=== PATIENT | female | born 1990 | race Caucasian/White ===

== ENCOUNTER → 2020-06-08 | Outpatient (CLI) | payer OTHER, SELFPAY ==
[2020-06-08 10:18] VITALS: BMI 34.0
[2020-06-14 16:23] LABS: HPV APTIMA, High Risk Negative (Negative)
== END | disposition home or self-care (01) ==
LOC: LABSPEC 16:49
PROVIDERS: PCP Family Medicine; Referring Provider Obstetrics & Gynecology; Visit Provider Obstetrics & Gynecology
DX: Z12.4 Encounter for screening for malignant neoplasm of cervix (principal)
CPT/HCPCS: 87624; 88175; G0145

== ENCOUNTER → 2020-06-14 13:51 | Outpatient (CLI) | payer OTHER, SELFPAY ==
[2020-06-08 10:18] VITALS: BMI 34.0
--- NOTE | 2020-06-14 13:59 | US_ITS ---
STUDY: ULTRASOUND OF THE FEMALE PELVIS - COMPLETE REASON FOR EXAM: Female, 30 years old. aub LMP: 05/31/2020. TECHNIQUE: Transabdominal and Transvaginal TECHNICAL QUALITY: Adequate. COMPARISON: None. FINDINGS: The uterus is retroverted and is in a midline position. The uterus measures 7.7 cm x 5.6 cm x 5.2 cm. Normal uterine cervix. The endometrium measures 6.5 mm in thickness, and is hyperechoic. There is no demonstrated endometrial mass. There is no demonstrated myometrial mass. I.U.D. - The patient does not have an I.U.D. The right ovary is visualized. The right ovary measures 3.5 cm x 3.1 cm x 2.4 cm. There is no right ovarian cyst or ovarian mass. There is no visualized right adnexal mass or complex lesion. There is normal arterial and normal venous vascularity. The left ovary is visualized. The left ovary measures 4.1 cm x 2.7 cm x 2.9 cm. There is no left ovarian cyst or ovarian mass. There is no visualized left adnexal mass or complex lesion. There is normal arterial and normal venous vascularity. There is no fluid in the cul-de-sac. The pre void volume of the bladder was 300 ml. US/Pelvic (Non ) IMPRESSION: Normal female pelvis. Electronically Signed: Masood Tristan MD at 15:00 EST , Service support ,
--- NOTE | 2020-06-14 13:59 | US_ITS ---
STUDY: ULTRASOUND OF THE FEMALE PELVIS - COMPLETE REASON FOR EXAM: Female, 30 years old. aub LMP: 05/31/2020. TECHNIQUE: Transabdominal and Transvaginal TECHNICAL QUALITY: Adequate. COMPARISON: None. FINDINGS: The uterus is retroverted and is in a midline position. The uterus measures 7.7 cm x 5.6 cm x 5.2 cm. Normal uterine cervix. The endometrium measures 6.5 mm in thickness, and is hyperechoic. There is no demonstrated endometrial mass. There is no demonstrated myometrial mass. I.U.D. - The patient does not have an I.U.D. The right ovary is visualized. The right ovary measures 3.5 cm x 3.1 cm x 2.4 cm. There is no right ovarian cyst or ovarian mass. There is no visualized right adnexal mass or complex lesion. There is normal arterial and normal venous vascularity. The left ovary is visualized. The left ovary measures 4.1 cm x 2.7 cm x 2.9 cm. There is no left ovarian cyst or ovarian mass. There is no visualized left adnexal mass or complex lesion. There is normal arterial and normal venous vascularity. There is no fluid in the cul-de-sac. The pre void volume of the bladder was 300 ml. US/Transvaginal Non- IMPRESSION: Normal female pelvis. Electronically Signed: Masood Tristan MD at 15:00 EST , Service support ,
== END ==
PROVIDERS: PCP Family Medicine; Referring Provider Obstetrics & Gynecology; Visit Provider Obstetrics & Gynecology
DX: N97.9 Female infertility, unspecified (principal); N93.9 Abnormal uterine and vaginal bleeding, unspecified
CPT/HCPCS: 76830; 76856

== ENCOUNTER → 2020-08-11 09:11 | Outpatient (CLI) | payer OTHER, SELFPAY ==
[2020-06-08 10:18] VITALS: BMI 34.0
[2020-08-11 10:13] LABS: hCG Titer Quant., Serum 20832 mIU/mL (1-3)
== END ==
PROVIDERS: PCP Family Medicine; Referring Provider Obstetrics & Gynecology; Visit Provider Obstetrics & Gynecology
DX: Z34.90 Encounter for supervision of normal pregnancy, unspecified, unspecified trimester (principal)
CPT/HCPCS: 36415; 84702

== ENCOUNTER → 2020-08-28 11:21 | Outpatient (CLI) | payer OTHER, SELFPAY ==
[2020-08-28 10:34] VITALS: BMI 34.2
--- NOTE | 2020-08-28 11:24 | US_ITS ---
STUDY: FIRST TRIMESTER OBSTETRICAL ULTRASOUND REASON FOR EXAM: Female, 30 years old viability LMP: 05/30/2020 TECHNIQUE: Transabdominal and Transvaginal TECHNICAL QUALITY: Adequate. PRIOR ULTRASOUND: None. FINDINGS: There is visualization of a single gestational sac in a normal intrauterine position. The mean sac diameter (MSD) measures 1.91 cm, indicating an estimated gestational age (EGA) of 6 weeks, 6 days. The gestational sac shape is within normal limits. There is a visualized yolk sac. The yolk sac measures 1.4 cm. The placenta is non-visualized. There is no demonstrated embryo ( pole). The estimated gestation age (EGA) by LMP is 12 weeks, 6 days. The estimated date of delivery (TIAN) by LMP is 03/06/2021. The estimated gestation age (EGA) by US is 6 weeks, 3 days. The estimated date of delivery (TIAN) by US is 04/20/2021. The uterus measures 13 cm x 9.8 cm x 5.9 cm. There is no demonstrated uterine fibroid. The cervix is closed. The right ovary measures 3.7 cm x 3 cm by 1.6 cm. There is no right ovarian cyst. There is no visualized right adnexal mass or complex lesion. The left ovary measures 3 cm x 2.5 cm x 1.3 cm. There is no left ovarian cyst. There is no visualized left adnexal mass or complex lesion. There is no fluid in the cul de sac. US/Transvaginal w/Preg US IMPRESSION: Intrauterine gestational sac with images patient wedge of 6 weeks and 3 days. No definite pole or cardiac activity is seen at this time. Follow-up is recommended. Electronically Signed: Masood Tristan MD at 12:52 EDT , Service support ,
== END ==
PROVIDERS: PCP Family Medicine; Referring Provider Obstetrics & Gynecology; Visit Provider Obstetrics & Gynecology
DX: O20.0 Threatened abortion (principal)
CPT/HCPCS: 76817

== ENCOUNTER → 2020-08-31 16:22 | Outpatient (CLI) | payer OTHER, SELFPAY ==
[2020-08-28 10:34] VITALS: BMI 34.2
--- NOTE | 2020-08-31 16:24 | US_ITS ---
STUDY: FIRST TRIMESTER OBSTETRICAL ULTRASOUND REASON FOR EXAM: Female, 30 years old Viability/bleeding LMP: May 30, 2020 TECHNIQUE: Transvaginal TECHNICAL QUALITY: Adequate. PRIOR ULTRASOUND: August 28, 2020 FINDINGS: There is visualization of a single gestational sac in a normal intrauterine position. The mean sac diameter (MSD) measures 2.3 cm, indicating an estimated gestational age (EGA) of 7 weeks, 1 days. The gestational sac shape is irregular. There is no demonstrated yolk sac. The placenta is non-visualized. There is visualization of an embryo with no cardiac activity, consistent with intrauterine demise. The crown-rump length (CRL) measures 0.5 cm, indicating an estimated gestational age (EGA) of 6 weeks, 2 days. The estimated gestation age (EGA) by LMP is 13 weeks, 2 days. The estimated date of delivery (TIAN) by LMP is March 06, 2021. The estimated gestation age (EGA) by US is 6 weeks, 5 days. The estimated date of delivery (TIAN) by US is April 01, 2021. The uterus measures 11.7 x 8.6 x 7.2 cm. There is no demonstrated uterine fibroid. The cervix is closed. The right ovary measures 3.3 x 2.6 x 2.1 cm. There is no right ovarian cyst. There is no visualized right adnexal mass or complex lesion. The left ovary measures 4.8 x 2.3 x 1.9 cm. There is no left ovarian cyst. There is no visualized left adnexal mass or complex lesion. There is no fluid in the cul de sac. US/Transvaginal w/Preg US IMPRESSION: demise in utero at 6 weeks 5 days. Electronically Signed: Ruben Ba MD at 18:24 EDT , Service support ,
[2020-08-31 18:37] LABS: hCG Titer Quant., Serum 3918 mIU/mL (1-3)
== END ==
PROVIDERS: PCP Family Medicine; Referring Provider Obstetrics & Gynecology; Visit Provider Obstetrics & Gynecology
DX: O36.80X0 Pregnancy with inconclusive fetal viability, not applicable or unspecified (principal); Z3A.00 Weeks of gestation of pregnancy not specified
CPT/HCPCS: 36415; 76817; 84702

== ENCOUNTER → 2020-09-04 08:56 | Outpatient (CLI) | payer OTHER, SELFPAY ==
[2020-09-04 08:34] VITALS: BMI 34.2
[2020-09-04 09:43] LABS: hCG Titer Quant., Serum 306 mIU/mL (1-3)
== END ==
PROVIDERS: PCP Family Medicine; Referring Provider Obstetrics & Gynecology; Visit Provider Obstetrics & Gynecology
DX: O03.9 Complete or unspecified spontaneous abortion without complication (principal)
CPT/HCPCS: 36415; 84702; 86850; 86900; 86901

== ENCOUNTER → 2020-12-18 14:22 | Outpatient (CLI) | payer OTHER, SELFPAY ==
[2020-12-18 15:09] LABS: hCG Titer Quant., Serum 581 mIU/mL (1-3)
== END ==
PROVIDERS: PCP Family Medicine; Referring Provider Obstetrics & Gynecology; Visit Provider Obstetrics & Gynecology
DX: N91.2 Amenorrhea, unspecified (principal)
CPT/HCPCS: 36415; 84702

== ENCOUNTER → 2020-12-20 09:38 | Outpatient (CLI) | payer OTHER, SELFPAY ==
[2020-12-20 10:39] LABS: hCG Titer Quant., Serum 1222 mIU/mL (1-3)
== END ==
PROVIDERS: PCP Family Medicine; Referring Provider Obstetrics & Gynecology; Visit Provider Obstetrics & Gynecology
DX: N91.2 Amenorrhea, unspecified (principal)
CPT/HCPCS: 36415; 84702

== ENCOUNTER → 2021-01-10 11:48 | Outpatient (CLI) | payer OTHER, SELFPAY ==
[2021-01-10 11:33] LABS: Amphetamine Urine VISTA NEGATIVE (<1000 ng/mL); Barbiturate Urine VISTA NEGATIVE (< 200 ng/mL); Benzodiazepine Urine VISTA NEGATIVE (< 200 ng/mL); Cocaine Urine VISTA NEGATIVE (< 300 ng/mL); Ecstacy Urine VISTA NEGATIVE (< 500 ng/mL); Methadone Urine VISTA NEGATIVE (< 300 ng/mL); PCP Urine VISTA NEGATIVE (< 25 ng/mL); THC Urine VISTA NEGATIVE (< 50 ng/mL); Vista UDS pH Range 6
[2021-01-12 03:07] LABS: Chlamydia By Nucleic Acid AMP Negative (Negative)
[2021-01-12 08:33] LABS: Gonococcus By Nucleic Acid AMP Negative (Negative)
== END ==
PROVIDERS: PCP Family Medicine; Visit Provider Obstetrics & Gynecology
DX: Z34.80 Encounter for supervision of other normal pregnancy, unspecified trimester (principal)
CPT/HCPCS: 80307; 87086; 87088; 87491; 87591

== ENCOUNTER → 2021-01-24 08:53 | Outpatient (CLI) | payer OTHER, SELFPAY ==
[2021-01-24 09:26] LABS: Absolute Lymphocyte Count 1.72 X10^3/uL (0.83-4.51); Absolute Neutrophil Count 5.6 X10^3/uL (2.0-7.7); Basophil# 0.04 X10^3/uL; Basophil% 0.5 % (0-1); Eosinophils% 2.4 % (0-5); Hematocrit 37.9 % (37-47); Hemoglobin 12.6 g/dL (12.0-15.0); Lymphocyte # 1.72 X10^3/ul (0.83-4.51); Lymphocyte % 20.9 % (19-41); Mean Corp Hgb Conc 33.2 g/dL (32-36); Mean Corpuscular Hgb 29.8 pg (27.0-32.0); Mean Corpuscular Volume 89.6 fL (81-99); Mean Platelet Vol. 8.9 fl (6.2-12.0); Monocyte# 0.61 X10^3/uL; Monocyte% 7.4 % (0-10); NRBC Flagged by Analyzer 0 % (0-5); Neutrophil # 5.64 X10^3/uL (2.7-7.7); Neutrophil % 68.4 % (47-70); Platelet Count 296 K/mm3 (150-450); RBC Distribution Width CV 12.9 % (11.6-14.6); RBC Distribution Width SD 42.1 fl (35.1-43.9); Red Blood Count 4.23 M/mm3 (4.2-5.4); White Blood Count 8.2 K/mm3 (4.4-11.0)
[2021-01-24 10:08] LABS: Glucose Challenge Gest 1H 50g 124 mg/dL (70-140); Thyroid Stim Hormone (TSH) 1.96 uIU/mL (0.358-3.74)
[2021-01-24 10:39] LABS: HIV - WCH Non-Reactive (Nonreactive); Hepatitis B Surface Antigen Non-Reactive (Nonreactive); Hepatitis C Antibody Non-Reactive (Nonreactive); Rubella IgG Reactive (Nonreactive); Syphilis Antibodies Non-reactive
== END ==
PROVIDERS: PCP Family Medicine; Referring Provider Obstetrics & Gynecology; Visit Provider Obstetrics & Gynecology
DX: O99.210 Obesity complicating pregnancy, unspecified trimester (principal); E03.9 Hypothyroidism, unspecified; Z3A.00 Weeks of gestation of pregnancy not specified
CPT/HCPCS: 36415; 82950; 84443; 85025; 86703; 86762; 86780; 86803; 86850; 86900; 86901; 87340

== ENCOUNTER 2021-05-30 08:15 | Outpatient (CLI) | payer OTHER, SELFPAY ==
[2021-05-30 08:37] LABS: Absolute Lymphocyte Count 1.66 X10^3/uL (0.83-4.51); Absolute Neutrophil Count 5.3 X10^3/uL (2.0-7.7); Basophil# 0.03 X10^3/uL; Basophil% 0.4 % (0-1); Eosinophils% 2.5 % (0-5); Hemoglobin 10.8 g/dL (12.0-15.0); Lymphocyte # 1.66 X10^3/ul (0.83-4.51); Lymphocyte % 20.9 % (19-41); Mean Corp Hgb Conc 33.8 g/dL (32-36); Mean Corpuscular Hgb 30.5 pg (27.0-32.0); Mean Corpuscular Volume 90.4 fL (81-99); Mean Platelet Vol. 9.1 fl (6.2-12.0); Monocyte# 0.69 X10^3/uL; Monocyte% 8.7 % (0-10); NRBC Flagged by Analyzer 0 % (0-5); Neutrophil # 5.34 X10^3/uL (2.7-7.7); Neutrophil % 67.1 % (47-70); Platelet Count 284 K/mm3 (150-450); RBC Distribution Width CV 12.1 % (11.6-14.6); RBC Distribution Width SD 40.2 fl (35.1-43.9); Red Blood Count 3.54 M/mm3 (4.2-5.4)
[2021-05-30 08:55] LABS: Glucose Challenge Gest 1H 50g 110 mg/dL (70-140); T4 Free Direct 0.74 ng/dL (0.76-1.46); Thyroid Stim Hormone (TSH) 1.77 uIU/mL (0.358-3.74)
== END 2021-05-30 23:59 | disposition short-term general hospital (02) ==
LOC: PAVLAB 08:15
PROVIDERS: PCP Family Medicine; Referring Provider Obstetrics & Gynecology; Visit Provider Obstetrics & Gynecology
DX: Z34.80 Encounter for supervision of other normal pregnancy, unspecified trimester (principal); E03.9 Hypothyroidism, unspecified; Z13.29 Encounter for screening for other suspected endocrine disorder
CPT/HCPCS: 36415; 82950; 84439; 84443; 85025

== ENCOUNTER 2021-07-30 10:25 | Outpatient (CLI) | payer OTHER, SELFPAY ==
[2021-07-30] VITALS (17 sets, daily range): BP systolic 132; BP diastolic 76; PULSE 74–113; TEMP 36.8; O2SAT 94–99; BMI 35.6
--- NOTE | 2021-08-03 04:27 | OB.TRI.PN ---
Progress Notes Date of Service: 08/03/21 Progress Note: Patient presents for triage evaluation secondary to heart rate decel in office unstable lie FHT: 140 Moderate variability reactive no decelerations category I tracing [place]: irreuglar Contractions Assessment and plan: heart rate variable decel unstable lie, no further decels seen on prolonged monitoring- Reactive NST, reassuring maternal and status patient discharged to home to follow-up as scheduled. See problem list details for additional plan information. Charges/Coding Procedures Urinary/Genital 52xxx-59xxx: 76134-06 non-stress test Interp
== END 2021-07-30 23:59 | disposition home or self-care (01) ==
LOC: WPOUT 10:34 → WP 10:35
PROVIDERS: PCP Family Medicine; Visit Provider Obstetrics & Gynecology
DX: O76 Abnormality in fetal heart rate and rhythm complicating labor and delivery (principal); O32.0XX0 Maternal care for unstable lie, not applicable or unspecified; Z3A.00 Weeks of gestation of pregnancy not specified
CPT/HCPCS: 59025; 59050; 87081; 99218; G0378

== ENCOUNTER 2021-08-30 04:20 | Inpatient (IN) | payer OTHER, SELFPAY ==
[2021-08-30] VITALS (42 sets, daily range): BP systolic 95–130; BP diastolic 47–81; PULSE 61–96; RESP 14–16; TEMP 36.1–37.3; O2SAT 95–100; BMI 35.7
[2021-08-30] MEDS: Lactated Ringers 1,000 ML 50 ML IV (05:25)
[2021-08-30 05:37] LABS: Absolute Lymphocyte Count 2.15 X10^3/uL (0.83-4.51); Absolute Neutrophil Count 4.2 X10^3/uL (2.0-7.7); Basophil# 0.03 X10^3/uL; Basophil% 0.4 % (0-1); Eosinophil# 0.13 X10^3/uL; Eosinophils% 1.8 % (0-5); Hematocrit 29.9 % (37-47); Hemoglobin 9.5 g/dL (12.0-15.0); Lymphocyte # 2.15 X10^3/ul (0.83-4.51); Lymphocyte % 30.2 % (19-41); Mean Corp Hgb Conc 31.8 g/dL (32-36); Mean Corpuscular Hgb 26.8 pg (27.0-32.0); Mean Corpuscular Volume 84.2 fL (81-99); Mean Platelet Vol. 9.6 fl (6.2-12.0); Monocyte# 0.65 X10^3/uL; Monocyte% 9.1 % (0-10); NRBC Flagged by Analyzer 0 % (0-5); Neutrophil # 4.15 X10^3/uL (2.7-7.7); Neutrophil % 58.2 % (47-70); Platelet Count 272 K/mm3 (150-450); RBC Distribution Width CV 13.8 % (11.6-14.6); RBC Distribution Width SD 42.7 fl (35.1-43.9); Red Blood Count 3.55 M/mm3 (4.2-5.4); White Blood Count 7.1 K/mm3 (4.4-11.0)
[2021-08-30] MEDS: Lactated Ringers 500 ML 999 ML IV (07:59)
[2021-08-30] MEDS: fentaNYL-bupivacaine (epidural) 100 ML BAG EPIDURAL (09:10)
--- NOTE | 2021-08-30 10:42 | HP.PCM.OB_ITS ---
HPI - General General Date of Admission: 08/30/21 HPI Narrative OSEI THAKKAR, is a 31 F who presents IAL 4 cm dilated with regular ctx painful no vb lof admits good FM, fetus vertex presentation. Maternal Data Information TIAN Calculator Estimated Delivery Date Method Current WG Current Estimate 08/24/21 Ultrasound #1 41w 0d Other Estimates 08/16/21 LMP (Certain) 42w 1d PFSH PFSH Medical History Hypothyroid PCOS (polycystic ovarian syndrome) Home Medications multivitamin no.47-iron fum 27 mg-folate no.1 1 mg-dha 300 mg capsule 1 cap PO DAILY 12/20/20 [History Last Taken Unknown] ferrous sulfate 325 mg (65 mg iron) tablet 325 mg PO DAILY 06/25/21 [History Last Taken Unknown] famotidine [Pepcid] 20 mg PO DAILY 08/30/21 [History Last Taken Unknown] naproxen 500 mg PO BID PRN PRN #30 tab 08/31/21 [Rx Last Taken Unknown] oxycodone-acetaminophen [Percocet] 1 tab PO Q6H PRN 7 Days #20 tab 08/31/21 [Rx Last Taken Unknown] Allergy/AdvReac Type Severity Reaction Status Date / Time azithromycin [From Zithromax] Allergy Mild other Verified 08/14/21 08:21 Family History Grandmother Breast cancer Mother Multiple sclerosis Social History adopted: No household members: family housing: house number of children: 2 current occupational status: employed current occupation: [employer] Smoking Status: Never smoker second hand exposure: No alcohol intake: current details: social substance use type: does not use caffeine: Yes what type of physical activity do you participate in: walking seatbelt use: always do you feel safe at home: Yes additional social history: Cameron- [employer] Insurance History 4 Elective abortions 1 Hx Para 2 Spontaneous abortions Hx # Term Pregnancies Ectopic pregnancies Hx # Pregnancies Multiple births # of living children 2 Past Pregnancies Del. Date Name GA/Weeks Outcome Route Bth Weight Infant Gen Labor Lgth Anesthesia Del Locatn Provider FOB Unknown 2013 Joseph 40 live - full term 7lbs 14oz Fem caryn 24 hours epidural Marilu Clifton Unknown 2014 Kae 41 live - full term 8lbs 13oz Fema le 7 hours epidural Marilu Clifton Delivery Date: no complications Stephanie Ewing Delivery Date: IoL- post dates Stephanie Ewing Visit Details Expected Delivery Route/Plan Labor Preference: labor support person: Cameron labor intervention preferences: [] pain management options preferred: epidural cut cord/dad catch: cord : yes PP control planned: discussed: considering IUD discussed possible routes of delivery and associated risks: [] special requests: [] Plans Covid status: immune by vaccine pfizer Flu vaccine: given Tdap vaccine: given Rhogam: NA LARC form signed: yes movement and labor precautions reviewed. Problem list reviewed and updated with the most current plan of care details and appropriate orders placed. Relevant counseling for the gestational age provided. Continue routine care and follow up unless otherwise noted in visit notes/problem list details OB Flowsheet Initial Weight: 195 lb Date -?-?-?-?-?-?-?-?--?-?-?-?- EGA Weight BP Urine Prot -?-?-?-?-?-?-?-?-?-?-?-?- Glucose FHR FuHt Pres Dilation -?-?-?-?-?-?-?-?-?-?-?-?- Effaced St Visit Note 01/10/21 -?-?-?-?-?-?-?-?-?-?-?-?- 7w 5d 195 lb 6 oz (+6 oz) 110/80 -?-?-?-?-?-?-?-?-?-?-?-?- 157 -?-?-?-?-?-?-?-?-?-?-?-?- GP - CRL 13mm co nsistent with LMP 01/24/21 -?-?-?-?-?-?-?-?-?-?-?-?- 9w 5d 195 lb 6 oz (+6 oz) 124/88 Negative -?-?-?-?-?-?-?-?-?-?-?-?- Negative 150 -?-?-?-?-?-?-?-?-?-?-?-?- SM- no vb crmapi ng. 02/05/21 -?-?-?-?-?-?-?-?-?-?-?-?- 11w 3d 193 lb 2 oz (-1 lb 14 oz) 132/88 Trace -?-?-?-?-?-?-?-?-?-?-?-?- Negative 160 -?-?-?-?-?-?-?-?-?-?-?-?- -work in for s mall amount brown vaginal discharge. Had recent intercourse. Brief sono confirmed active IUP. Cervix closed. No blood in vagina. Reassured. 02/23/21 -?-?-?-?-?-?-?-?-?-?-?-?- 14w 0d 194 lb (-16 oz) 120/82 Negative -?-?-?-?-?-?-?-?-?-?-?-?- Negative 150 -?-?-?-?-?-?-?-?-?-?-?-?- SM- no vb crampi ng 03/20/21 -?-?-?-?-?-?-?-?-?-?-?-?- 17w 4d 191 lb 6 oz (-3 lb 10 oz) 112/80 Negative -?-?-?-?-?-?-?-?-?-?-?-?- Negative 147 -?-?-?-?-?-?-?-?-?-?-?-?- JV- no lof, vagi nal bleeding, or cramping. no movement yet. 04/16/21 -?-?-?-?-?-?-?-?-?-?-?-?- 21w 3d 195 lb 8 oz (+8 oz) 106/76 Negative -?-?-?-?-?-?-?-?-?-?-?-?- Negative 145 -?-?-?-?-?-?-?-?-?-?-?-?- SM- no vb lof go od fm no reualr ctx. need to review anatomy scan 05/18/21 -?-?-?-?-?-?-?-?-?-?-?-?- 26w 0d 201 lb (+6 lb) 116/78 Negative -?-?-?-?-?-?-?-?-?-?-?-?- Negative 140 26 -?-?-?-?-?-?-?-?-?-?-?-?- SM- no vb lof go od fm nor egular ctx 05/30/21 -?-?-?-?-?-?-?-?-?-?--?-?- 27w 5d 200 lb (+5 lb) 116/72 Trace -?-?-?-?-?-?-?-?-?-?-?-?- Negative 152 28 -?-?-?-?-?-?-?-?-?-?-?-?- MH-No VB, LOF. N o CTX. 28 wk labs, Larc, tdap. 06/12/21 -?-?-?-?-?-?-?-?-?-?-?-?- 29w 4d 198 lb 4 oz (+3 lb 4 oz) 120/70 Negative -?-?-?--?-?-?-?-?-?-?-?-?- Negative 150 31 -?-?-?-?-?-?-?-?-?-?-?-?- JV- no complaint s today. nml glucola. got tdap last visit. no lof ,vaginal bleeding, or dec fm. 06/25/21 -?-?-?-?-?-?-?-?-?-?-?-?- 31w 3d 200 lb (+5 lb) 112/80 Negative -?-?-?-?-?-?-?-?-?-?-?-?- Negative 140 33 -?-?-?-?-?-?-?-?-?-?-?-?- SM- no vb lof go od fm no regular ctx 07/09/21 -?-?-?-?-?-?-?-?-?-?-?-?- 33w 3d 199 lb (+4 lb) 112/70 Negative -?-?-?-?-?-?-?-?-?-?-?-?- Negative 140 34 -?-?-?-?-?-?-?-?-?-?-?-?- SM- no vb lof go od fm no regular ctx 07/24/21 -?-?-?-?-?-?-?-?-?-?-?-?- 35w 4d 199 lb 8 oz (+4 lb 8 oz) 116/74 Negative -?-?-?-?-?-?-?-?-?-?-?-?- Negative 150 36 Breech -?-?-?-?-?-?-?-?-?-?-?-?- JV- no lof, vag bleeding, or dec. breech today. will rescan next week with GBS. 07/30/21 -?-?-?-?-?-?-?-?-?-?-?-?- 36w 3d 201 lb (+6 lb) 100/62 Negative -?-?-?-?-?-?-?-?-?-?-?-?- Negative 140 36 Cephalic -?-?-?-?-?-?-?-?-?-?-?-?- SM- no vb lof go od fm no regular ctx, infant moving transverse to head on exam today, nst done afterwards 08/08/21 -?-?-?-?-?-?-?-?-?-?-?-?- 37w 5d 200 lb 5 oz (+5 lb 5 oz) 130/80 Negative -?-?-?-?--?-?-?-?-?-?-?-?- Negative 150 37 Cephalic 0 -?-?-?-?-?-?-?-?-?-?-?-?- JV- ultrasound t o confirm still vertex. pt closed. labor precautions discussed 08/14/21 -?-?-?-?-?-?-?-?-?-?-?-?- 38w 4d 202 lb (+7 lb) 132/80 Negative -?-?-?-?-?-?-?-?-?-?-?-?- Negative 140 38 Cephalic 1 -?-?-?-?-?-?-?-?-?-?-?-?- 0 -4 JV- presen ting part not felt. rpt bedside scan confirmed high vertex. IOL not recommended at this time unless other issues arise. will re-discuss at next visit. 08/21/21 -?-?-?-?-?-?-?-?-?-?-?-?- 39w 4d 199 lb (+4 lb) 136/80 -?-?-?-?-?-?-?-?-?-?-?-?- 145 38 Cephalic 1 -?-?-?-?-?-?-?-?-?-?-?-?- 0 -4 SM- vertex on ultrasound engaged. no vb lof good fm no regular ctx 08/28/21 -?-?-?-?-?-?-?-?-?-?-?-?- 40w 4d 202 lb (+7 lb) 136/88 -?-?-?-?-?-?-?-?-?-?-?-?- 140 40 Cephalic 1 -?-?-?-?-?-?-?-?-?-?-?-?- SM- discussed no vb lof good fm no regular ctx 08/30/21 -?-?-?-?-?-?-?-?-?-?-?-?- 40w 6d 201 lb 15.095 oz (+6 lb 15.095 oz) 115/60 121/67 125/80 128/81 130/79 119/78 108/64 105/62 108/66 115/73 110/58 110/67 98/54 100/59 95/47 102/62 105/59 104/52 102/54 104/70 110/62 106/58 -?-?-?-?-?-?-?-?-?-?-?-?- -?-?-?-?-?-?-?-?-?-?-?-?- NST FHR Rate Baby A Baseline: 140 Variability:: Moderate Accelerations:: 15 x 15 Decelerations:: None NST Reactive:: Yes FHR Category:: Category I Uterine Activity:: q3-5 ROS Constitutional Constitutional: Reports systems reviewed and no addt'l complaints, except as documented ENT HEENT: Reports systems reviewed and no addt'l complaints, except as documented Cardiovascular Cardiovascular: Reports systems reviewed and no addt'l complaints, except as documented Respiratory/Chest Respiratory/Chest: Reports systems reviewed and no addt'l complaints, except as documented Gastrointestinal Gastrointestinal: Reports systems reviewed and no addt'l complaints, except as documented and nausea; Denies abdominal pain Genitourinary Genitourinary: Reports systems reviewed and no addt'l complaints, except as documented, contractions Details: present and frequency (regular ) and movement Details: present Musculoskeletal Musculoskeletal: Reports systems reviewed and no addt'l complaints, except as documented Integumentary Integumentary: Reports as per HPI Neurologic Neurologic: Reports systems reviewed and no addt'l complaints, except as documented Endocrine Endocrinology: Reports systems reviewed and no addt'l complaints, except as documented Vital Signs Vital Signs Vital Signs: 08/30/21 04:34 08/30/21 04:39 08/30/21 06:43 Temperature 98.2 F 98.1 F Temperature Source Temporal Temporal Pulse Rate 96 Blood Pressure 115/60 BP Systolic 115 BP Diastolic 60 Pulse Ox 08/30/21 06:45 08/30/21 07:16 08/30/21 07:17 Temperature 98.2 F Temperature Source Pulse Rate 71 69 78 Blood Pressure 121/67 H 125/80 H BP Systolic 121 125 BP Diastolic 67 80 Pulse Ox 98 98 08/30/21 07:20 08/30/21 08:48 08/30/21 08:53 Temperature Temperature Source Pulse Rate 68 68 Blood Pressure BP Systolic BP Diastolic Pulse Ox 98 99 98 08/30/21 08:54 08/30/21 08:57 08/30/21 08:58 Temperature 99.1 F Temperature Source Pulse Rate 74 71 Blood Pressure 128/81 H BP Systolic 128 BP Diastolic 81 Pulse Ox 98 08/30/21 08:59 08/30/21 09:03 08/30/21 09:04 Temperature Temperature Source Pulse Rate 74 73 Blood Pressure 130/79 H 119/78 BP Systolic 130 119 BP Diastolic 79 78 Pulse Ox 97 08/30/21 09:08 08/30/21 09:09 08/30/21 09:13 Temperature Temperature Source Pulse Rate 76 84 Blood Pressure 108/64 105/62 BP Systolic 108 105 BP Diastolic 64 62 Pulse Ox 99 99 08/30/21 09:18 08/30/21 09:19 08/30/21 09:23 Temperature Temperature Source Pulse Rate 91 83 83 Blood Pressure 108/66 BP Systolic 108 BP Diastolic 66 Pulse Ox 98 98 08/30/21 09:24 08/30/21 09:28 08/30/21 09:29 Temperature Temperature Source Pulse Rate 86 74 Blood Pressure 115/73 110/58 L BP Systolic 115 110 BP Diastolic 73 58 Pulse Ox 98 08/30/21 09:33 08/30/21 09:42 08/30/21 10:12 Temperature 98.2 F 97.5 F L Temperature Source Pulse Rate 80 63 Blood Pressure 110/67 98/54 L BP Systolic 110 98 BP Diastolic 67 54 Pulse Ox 98 Weight Weight: 201 lb 15.095 oz Body Mass Index (BMI) 35.7 Physical Exam Const alert, oriented x3 and healthy appearing Constitutional Narrative: uncomfortable with contractions HEENT normocephalic and moist oral mucous membranes Head and Scalp: atraumatic Neck full ROM, no lymphadenopathy, supple and thyroid normal General: trachea midline Thyroid: thyroid normal Lymph Lymphatic: no lymphadenopathy noted Chest inspection of chest normal Resp normal respiratory effort Cardio regular rate GI normal to inspection, nondistended, normoactive bowel sounds, soft to palpation and non-tender Inspection: gravid external exam normal Bimanual Exam - Vag & Uterus: uterus non-tender Manual OB Exam: estimated gestational size appropriate, presentation cephalic, dilated 4, effaced 70 and station -2 Extremity normal to inspection General Extremity: Negative for edema Skin no rashes or lesions noted Neuro deep tendon reflexes 2+ bilaterally Motor Exam: strength 5/5 throughout and clonus absent Psych mental status grossly normal Labs Labs Labs: Blood Type A POSITIVE Antibody Screen NEGATIVE Hct 28.2 % (37-47) L Hgb 9.1 g/dL (12.0-15.0) L Pap Smear Negative Obstetrics US Syphilis Total Ab Non-reactive Rubella IgG Antibody Reactive (Nonreactive) Hep Bs Antigen Non-Reactive (Nonreactive) Chlamydia DNA (RHODA) Negative (Negative) Neisseria gonorrhoeae DNA (RHODA) Negative (Negative) HIV 1&2 Antibody Non-Reactive (Nonreactive) Glucose 1 Hr 50 gm 110 mg/dL (70-140) Assessment & Plan (1) Supervision of other normal : COMMENT: PRR TIAN: 08/16/21 [facility]ina In[facility]: Kae Ruiz Spouse: Cameron (2) : QUALIFIERS: Weeks of gestation: 40 weeks Qualified Code(s): Z3A. 40 - 40 weeks gestation of COMMENT: Declines NIPT, carrier, and AFP. anatomy nl. GBS neg (3) Hypothyroid: QUALIFIERS: Hypothyroidism type: acquired Qualified Code(s): E03.9 - Hypothyroidism, unspecified COMMENT: nl TSH 1 TM. check q trimester PLAN: Patient presents IAL, plan expectant management for , pitocin/AROM PRN if needed. Pain management: plans epidural. GBS neg. Management of any complications: none I have reviewed the [facility] and made any clinically relevant updates.
[2021-08-30] MEDS: Cefazolin 2 GM in 0.9% Normal Saline 100 ML IV (12:35)
--- NOTE | 2021-08-30 13:28 | EX.PCM.OBRPT ---
Maternal Data Information TIAN Calculator Estimated Delivery Date Method Current WG Current Estimate 08/24/21 Ultrasound #1 41w 0d Other Estimates 08/16/21 LMP (Certain) 42w 1d Final TIAN Source: LMP Gestational age: 39 Details Operative Information Date of Procedure: 08/31/21 Pre-Operative Diagnosis: unstable lie, compound presentation Post-Operative Diagnosis: same Procedure Type: low transverse Type of Anesthesia: Epidural Special Medications: none Drain: Cole to straight drain Fluids Replaced: crystalloid Findings Description of Procedure: Patient presented initially in active labor and was found to be cephalic. After being in labor several hours and after her epidural again the patient was checked and no presenting part was palpated. Upon ultrasound the was found to be transverse head maternal right. With minimal manipulation the head was converted to cephalic however was a compound presentation with hand and foot and the membranes were bulging down into the vagina and station was extremely high and not well applied and unstable. Patient was 5/70% effaced. Patient was counseled regarding options including Pitocin augmentation with abdominal binding to limit movement however it was discussed the risk of spontaneous rupture of membranes with possible cord prolapse due to unstable lie and compound presentation versus proceeding with immediate delivery due to unstable lie and compound presentation. Patient requested to proceed with immediate delivery. The patient was placed in the dorsal supine position with leftward tilt. Patient was prepped and draped in the normal sterile fashion. Pfannenstiel skin incision was made with the scalpel and carried through to the underlying layer of fascia with the scalpel. Fascia was nicked in the midline and the incision extended laterally. The rectus bellies were dissected off superiorly and inferiorly with out complication both sharply and bluntly. The peritoneum was entered digitally. The incision was stretched and a low transverse uterine incision was made with the scalpel. The 's feet were encountered whenever the uterine incision was made and traction was placed on both feet attempting to deliver. Additional room needed to be made and therefore the incision and the uterus was extended laterally without complication. Additional manipulation to completely convert baby to breech because it was transverse upon uterine incision was made and the infant's legs were completely delivered followed by the body the right and left arms were swept anteriorly and then the head was flexed and delivered without complication after 3 loops of cord were noted around the neck. A true knot was also visualized in the cord. The placenta was delivered spontaneously immediately following and was noted to be intact and have a three-vessel cord. The uterus was exteriorized cleared of all clots and debris, and the incision was closed in a double layer closure using #1 Monocryl. The ovaries and fallopian tubes were noted to be within normal limits. The uterus was returned to the maternal abdomen and gutters were cleared of all clots and debris. The peritoneum was closed with 3-0 Monocryl in a running fashion. Gloves were changed prior to fascial closure. Fascia was closed with 0 PDS in a running fashion. Subcutaneous tissue was copiously irrigated and the skin was closed with 3-0 Monocryl in a subcuticular fashion. Mepilex dressing was applied without complication. Patient was taken to recovery in stable condition. It was discussed with the patient that based on the clinical information obtained during this encounter, combined with her history, at this time I would recommend vagial or for future deliveries if further pregnancies are desired. Amniotic Membrane Rupture Type: Artificial Amniotic Fluid Description: Clear Placental Delivery Description: Spontaneous Placenta Disposition: [facility] Cord Vessel Description: 3 Vessels Cord Entanglement: True Knot(s) and - (Nuchal cord x3 tight) Delayed Cord Clamping: Yes Complications Risks of Surgery Discussed w/Patient: Bleeding, Infection, Need for Future C-Sections and Injury to surrounding structure(s) including bowel and bladder Complications: none Admit VTE Documentation VTE Present on Admission: No VTE Mechan Device Prophylaxis: SCD's Procedures Urinary/Genital [id number]: [id number] Delivery [facility]
[2021-08-30] MEDS: Oxytocin 30 units/NS 500 ml 30 UNITS/500 ML IV.SOLN 167 UNITS IV (13:45)
[2021-08-30] MEDS: Ketorolac 30 MG/ML Syringe IV ×2 (15:06→20:49)
[2021-08-30] MEDS: Lactated Ringers 1,000 ML 100 ML IV (16:50)
[2021-08-30] MEDS: Acetaminophen 500 MG Tablet 1000 MG PO (18:19)
[2021-08-31 00:25] VITALS: BP 106/65; PULSE 65; RESP 16; TEMP 36.2; O2SAT 98
[2021-08-31] MEDS: Enoxaparin 40 MG/0.4 ML Syringe SC (00:33)
[2021-08-31] MEDS: Acetaminophen 500 MG Tablet 1000 MG PO ×3 (00:33→13:47)
[2021-08-31] MEDS: Ketorolac 30 MG/ML Syringe IV ×2 (02:47→08:13)
[2021-08-31 04:00] VITALS: BP 104/52; PULSE 77; RESP 16; TEMP 36.4; O2SAT 97
[2021-08-31 06:29] LABS: Hematocrit 28.2 % (37-47); Hemoglobin 9.1 g/dL (12.0-15.0); Mean Corp Hgb Conc 32.3 g/dL (32-36); Mean Corpuscular Hgb 27.4 pg (27.0-32.0); Mean Corpuscular Volume 84.9 fL (81-99); Mean Platelet Vol. 9.6 fl (6.2-12.0); Platelet Count 232 K/mm3 (150-450); RBC Distribution Width SD 43.5 fl (35.1-43.9); Red Blood Count 3.32 M/mm3 (4.2-5.4); White Blood Count 12.2 K/mm3 (4.4-11.0)
--- NOTE | 2021-08-31 07:04 | PCM.DC ---
Discharge Instructions Diet Discharge Diet: No restrictions Activity Discharge Activity: May Not Drive (for 2 weeks or while taking narcotic pain medications.), May Shower and May Take a Tub Bath (in 7 days) May shower in (days): 0 May resume sexual activity in: 4-6 weeks Weight Bearing Status: Full weight bearing Lifting Restrictions: 20 pounds Dressing / Incision Call your doctor if your incision/area has: Continuous Slow Oozing, Sudden Increased Bleeding, Increased Pain/ Swelling, Increased Redness and Foul Smelling Discharge Call your doctor if you observe: Fever of 101 or Higher and Using more than 1 pad per hour (for 2 hours) Suture Line Care: Avoid Pulling/Pushing and Avoid Pinching/Bending Cleanse incision/area with: Soap & Water and Keep Dressing Clean & Dry Follow Up Care Please Follow Up With: Collette Drummond MD When: Call [phone] to make an appointment for an incision check in 1-2 weeks. Test Results: Test results from this visit will be discussed in further detail at your follow-up appointment, if applicable. Discharge Plan Admission Admit Date/Time: 08/30/21 04:20 Attending Provider: Collette Drummond Primary Care Provider: Fausto Lebron Discharge Orders/Prescriptions Prescriptions: New oxycodone-acetaminophen [Percocet] 5-325 mg tablet 1 tab PO Q6H PRN (Reason: pain) 7 Days Qty: 20 RF: 0 naproxen [naproxen] 500 MG tablet 500 mg PO BID PRN PRN (Reason: Pain) Qty: 30 RF: 1 No Action PNV-DHA 27 mg iron-1 mg -300 mg capsule 1 cap PO DAILY RF: 0 ferrous sulfate 325 mg (65 mg iron) tablet 325 mg PO DAILY RF: 0 famotidine [Pepcid] 20 mg tablet 20 mg PO DAILY RF: 0 Referrals / Follow Up: Fausto Lebron MD [Primary Care Provider] - Disposition Disposition (needs filled in before D/C Order can be placed): Home, Self Care
--- NOTE | 2021-08-31 07:06 | PCM.PN.OB ---
Subjective Subjective Patient doing well without complaints. Tolerating PO. Ambulating and voiding without difficulty. feeding well. Denies chest pain, shortness of breath, calf pain/swelling, fevers, chills, lightheadedness. Objective Data Objective Data Vital Signs: Vital Signs Temp Pulse Resp BP Pulse Ox 97.6 F L 77 16 104/52 L 97 08/31/21 04:00 08/31/21 04:00 08/31/21 04:00 08/31/21 04:00 08/31/21 04:00 Oxygen Delivery Method Room Air Weight: 201 lb 15.095 oz Body Mass Index (BMI) 35.7 Intake & Output: Intake and Output for Last 24 Hours 08/29/21 08/30/21 08/31/21 23:59 23:59 23:59 Intake Total 3218.33 / 3218.33 766.67 / 766.67 Output Total 850 / 850 1125 / 1125 Balance 2368.33 / 2368.33 -358.33 / -358.33 Lab / Micro Data Result Diagrams: 08/31/21 06:15 Labs: Laboratory Results - last 24 hr 08/31/21 06:15: WBC 12.2 H, RBC 3.32 L, Hgb 9.1 L, Hct 28.2 L, MCV 84.9, MCH 27.4, MCHC 32.3, RDW Std Deviation 43.5, RDW Coeff of Marilia 14.0, Plt Count 232, MPV 9.6 Micro: Microbiology 08/30/21 05:16 Nasal Secretion SARS-CoV-2 Antigen (Rapid) - Final ROS Constitutional Constitutional: Reports systems reviewed and no addt'l complaints, except as documented Cardiovascular Cardiovascular: Reports systems reviewed and no addt'l complaints, except as documented Respiratory/Chest Respiratory/Chest: Reports systems reviewed and no addt'l complaints, except as documented Gastrointestinal Gastrointestinal: Reports systems reviewed and no addt'l complaints, except as documented Physical Exam Const alert, oriented x3 and no apparent distress HEENT Head and Scalp: atraumatic Resp normal respiratory effort GI soft to palpation and non-tender Inspection: incision intact, healing well and drainage (none) Bimanual Exam - Vag & Uterus: uterus non-tender Uterus Palpation: uterus fundus firm (below Umbilicus) Assessment & Plan (1) delivery delivered: COMMENT: SM unstable lie IAL NC x3 true knot girl Juan Jose (2) Hypothyroid: QUALIFIERS: Hypothyroidism type: acquired Qualified Code(s): E03.9 - Hypothyroidism, unspecified COMMENT: nl TSH 1 TM. check q trimester PLAN: s/p LTCS PPD # 1 1. routine post care 2. breast feeding- support given 3. rh positive 4. rubella immune
[2021-08-31 08:00] VITALS: BP 121/66; PULSE 76; RESP 16; TEMP 36.5; O2SAT 98
[2021-08-31] MEDS: Senna/Docusate Sodium 1 Tablet PO (08:14)
[2021-08-31] MEDS: 0.9% Saline Lock 10 ML Syringe IV (08:14)
[2021-08-31] MEDS: Naproxen 500 MG Tablet PO (13:47)
[2021-08-31 13:56] VITALS: BP 111/64; PULSE 82; RESP 16; TEMP 36.7; O2SAT 97
== END 2021-08-31 16:15 | disposition home or self-care (01) | DRG 788 ==
PROVIDERS: Obstetrics & Gynecology; Admitting Provider Obstetrics & Gynecology; PCP Family Medicine; Visit Provider Obstetrics & Gynecology
DX: O48.0 Post-term pregnancy (principal); E03.9 Hypothyroidism, unspecified; O99.284 Endocrine, nutritional and metabolic diseases complicating childbirth; Z37.0 Single live birth; Z3A.40 40 weeks gestation of pregnancy; O69.2XX0 Labor and delivery complicated by other cord entanglement, with compression, not applicable or unspecified; O32.0XX0 Maternal care for unstable lie, not applicable or unspecified; O32.6XX0 Maternal care for compound presentation, not applicable or unspecified
CPT/HCPCS: 59025; 59050; 76815; 85025; 85027; 86850; 86900; 86901; 87426; 99218; 99251; J7120; A4216; G0378; G0463

== ENCOUNTER → 2022-04-30 | Outpatient (CLI) | payer OTHER, SELFPAY | END | disposition home or self-care (01) | LOC: LABSPEC 17:00 | PROVIDERS: PCP Family Medicine; Referring Provider Nurse Practitioner Women's Health; Visit Provider Nurse Practitioner Women's Health | DX: N89.8 Other specified noninflammatory disorders of vagina (principal) | CPT/HCPCS: 87529 ==